=== PATIENT | male | born 1990 | race Caucasian/White ===

== ENCOUNTER 2022-06-04 01:06 | Inpatient (IN) | payer MEDICAID ==
[~2022-06-04] VITALS: Ht 180.3 cm; Wt 129.3 kg
--- NOTE | 2022-06-04 01:35 | NUR ---
Patient to ER bed 04 to gown for evaluation. Side rails up. Report given to KEVIN CORDOVA.
[2022-06-04 01:40] VITALS: BP_SYST 112
[2022-06-04] MEDS ORDERED: NS 1000 ML IV.SOLN IV ONE (02:00)
[2022-06-04] MEDS ORDERED: ceFAZolin SODIUM 1 GM in D5W 50 ML IV ONE (02:00)
[2022-06-04] MEDS ORDERED: DIPHENHYDRAMINE INJ 50 MG/ML VIAL IVP ONE (02:00)
[2022-06-04] MEDS ORDERED: methylPREDNISolone SOD SUCC/PF 62.5 MG/ML VIAL IVP ONE (02:00)
[2022-06-04 02:30] LABS: BASOPHILS # (AUTO) 0.1 K/uL (0.0-0.2); BASOPHILS % (AUTO) 2.4 % (0.0-2.0); EOSINOPHILS % (AUTO) 0.5 % (0.0-4.0); HEMATOCRIT 42.8 % (36-54); HEMOGLOBIN 14.7 g/dL (14.0-18.0); LYMPHOCYTES # (AUTO) 1.2 K/uL (1.0-5.5); LYMPHOCYTES % (AUTO) 21.4 % (20.5-51.5); MEAN CORPUSCULAR HEMOGLOBIN 31 pg (27-31); MEAN CORPUSCULAR HGB CONC 34 % (32-36); MEAN CORPUSCULAR VOLUME 90 fL (79.0-98.0); MONOCYTES # (AUTO) 0.1 K/uL (0.0-1.0); MONOCYTES % (AUTO) 2.3 % (1.7-9.3); NEUTROPHILS % (AUTO) 73.4 % (40.0-70.0); PLATELET COUNT (AUTO) 318 K/uL (130-430); RED BLOOD CELL COUNT(AUTO) 4.75 MIL/uL (4.2-6.2); RED CELL DISTRIBUTION WIDTH 13.4 % (9.0-15.0); WHITE BLOOD COUNT (AUTO) 5.5 K/uL (4.8-10.8)
--- NOTE | 2022-06-04 02:37 | NUR ---
COVID 19 SWAB TEST ADMINISTERED BY EMT MAYE AND TEST SAMPLE SWAB SENT TO LAB FOR ANALYSIS
[2022-06-04 02:41] LABS: ANION GAP 10 (5-15); CALCIUM 8.3 mg/dL (8.4-11.0); CHLORIDE 101 mmol/L (98-107); CREATININE 1.21 mg/dL (0.55-1.30); GLUCOSE 101 mg/dL (70-99); UREA NITROGEN, BLOOD 16 mg/dL (8-21)
[2022-06-04 02:42] LABS: GFR AFRICAN AMERICAN 88 mL/min (>90)
[2022-06-04 02:49] LABS: ALANINE AMINOTRANSFERASE 85 U/L (12-78); ASPARTATE AMINOTRANSFERASE 36 U/L (10-37); TOTAL BILIRUBIN 0.7 mg/dL (0.0-1.0)
[2022-06-04] MEDS ORDERED: ceFAZolin SODIUM 1 GM VIAL ONE (03:05)
[2022-06-04] MEDS ORDERED: HALOPERIDOL LACTATE 5 MG/ML VIAL IM ONE (04:00)
--- NOTE | 2022-06-04 05:49 | NUR ---
Admit bed requested Patient will be admitted to care of Dr. VILLALTA. Admitted to TELE unit. Diagnosis TACHYCARDIA Inpatient (Yes or No) YES Observation (Yes or No) NO Orientation concerns or request close to nursing station (Yes or No) YES Covid Status NEGATIVE On vent or bipap NO Isolation requirements NO Needs a sitter NO From Home (Yes or if No enter name of facility) YES Requires Dialysis (Yes or No) NO Med Rec Completed (Yes of No) PENDING
--- NOTE | 2022-06-04 07:18 | NUR ---
PATIENT STATES HE HAS NOT TAKEN MEDS FOR THE PAST 4 TO 5 MONTHS.
[2022-06-04 07:39] LABS: BILIRUBIN,URINE NEGATIVE (NEGATIVE); CLARITY/URINE CLEAR (CLEAR); COLOR,URINE YELLOW (YELLOW); GLUCOSE,URINE NEGATIVE (NEGATIVE); KETONES,URINE 1+ (NEGATIVE); LEUKOCYTE ESTERASE ,URINE TRACE (NEGATIVE); NITRITE, URINE NEGATIVE (NEGATIVE); PROTEIN URINE NEGATIVE (NEGATIVE); UROBILINOGEN,URINE 0.2 (0.2-1.0)
[2022-06-04 07:42] LABS: BLOOD, URINE TRACE (NEGATIVE)
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
[2022-06-04 07:55] VITALS: BP_SYST 138
--- NOTE | 2022-06-04 07:58 | NUR ---
Patient will be admitted to care of DR VILLALTA. Admitted TELE unit. Will go to room 114-A. Belongings list completed. Complete and up to date summary report printed. SBAR report to be given at bedside with opportunity for questions.
--- NOTE | 2022-06-04 08:05 | NUR ---
Patient will be admitted to care of DR VILLALTA. Admitted TELE unit. Will go to room 114-A. Belongings list completed. Complete and up to date summary report printed. SBAR report to be given at bedside with opportunity for questions. REPORT GIVEN TO TASHA ABERNATHY
[2022-06-04 08:08] LABS: BARBITURATE, URINE NEGATIVE (NEG <=200); URINE METHADONE NEGATIVE (NEG <=200)
[2022-06-04 08:09] LABS: BENZODIAZEPINE, URINE NEGATIVE (NEG <=150); CANNABINOID, URINE NEGATIVE (NEG <=50); COCAINE, URINE NEGATIVE (NEG <=150); METHAMPHETAMINES SCREEN,URINE POSITIVE (NEG <=500); OPIATE, URINE NEGATIVE (NEG <=100); PHENCYCLIDINE SCREEN,URINE NEGATIVE (NEG <=25); UR TRICYCLIC ANTIDEPRESSANTS NEGATIVE (NEG <=300); URINE AMPHETAMINE POSITIVE (NEG <=500); URINE OXYCODONE SCREEN NEGATIVE (NEG <=100); URINE PROPOXYPHENE SCREEN NEGATIVE (NEG <=300)
--- NOTE | 2022-06-04 08:33 | NUR ---
CONSULT:CARDIO REASON: CARDIAC MESSAGED WITH DETAILS BETHANY DRISCOLL AWARE
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
[2022-06-04 08:55] LABS: BACTERIA,URINE FEW /HPF (None Seen); MUCUS,URINE 1+ /LPF (None Seen)
== END 2022-06-04 08:50 | disposition left against medical advice (07) | DRG 383 ==
LOC: SED 01:06 → STU 05:48
PROVIDERS: ADMIT Preventive Medicine Preventive Medicine/Occupational Environmental Medicine; ATTEND Preventive Medicine Preventive Medicine/Occupational Environmental Medicine
DX: L03.90 Cellulitis, unspecified (principal); E88.09 Other disorders of plasma-protein metabolism, not elsewhere classified; Z53.29 Procedure and treatment not carried out because of patient's decision for other reasons; E83.52 Hypercalcemia; R73.9 Hyperglycemia, unspecified; R74.01 Elevation of levels of liver transaminase levels; F15.90 Other stimulant use, unspecified, uncomplicated; Z20.822 Contact with and (suspected) exposure to COVID-19
CPT/HCPCS: 36415; 71045; 80053; 80307; 81000; 83605; 84484; 85025; 87040; 87086; 93005; 96365; 96375; 99285; G0378; J0690; J1200; J2930; J7060